=== PATIENT | female | born 2000 | race African-American/Black ===

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

== ENCOUNTER 2021-03-13 21:10 | Emergency (ER) | payer OTHER ==
[~2021-03-13] VITALS: Ht 149.9 cm; Wt 47.2 kg
[~2021-03-13 21:10] MED LIST: KEFLEX500 M1 PO; SPRINTEC1 EACH PO
[2021-03-13] MEDS ORDERED: AMOXICILLIN500 M1 PO (21:43)
[2021-03-13 21:53] VITALS: BP 112/64
== END 2021-03-13 21:54 | disposition home or self-care (01) ==
LOC: M.ERS 21:10
DX: J32.9 Chronic sinusitis, unspecified (principal)